=== PATIENT | female | born 1980 | race Caucasian/White ===

== ENCOUNTER → 2016-06-09 15:31 | Emergency (ER) | payer BC | END | disposition left against medical advice (07) | LOC: ED 15:31 | DX: Z34.93 Encounter for supervision of normal pregnancy, unspecified, third trimester (principal); Z53.21 Procedure and treatment not carried out due to patient leaving prior to being seen by health care provider ==

== ENCOUNTER 2016-07-01 09:58 | Inpatient (IN) | payer BC, MEDICAID ==
[2016-07-01 10:44] LABS: ROM Internal QC QC Line Present
[2016-07-01] MEDS ORDERED: Lidocaine 1% MPF* 2 ML VIAL ONE (10:48)
[2016-07-01] MEDS ORDERED: ceFOXitin 2 GM IVPREMIX* 2 GM/50 ML BAG ONE (11:11)
[2016-07-01] MEDS ORDERED: Sodium Citrate/Citric Acid* 15 ML UDC PO ONE (11:14)
[2016-07-01 11:22] LABS: Hematocrit 37 % (35-47); Hemoglobin 12.6 g/dl (12.0-16.0); Mean Corpuscular HGB Conc 34 g/dl (31-36); Mean Corpuscular Hemoglobin 30 pg (27-31); Mean Corpuscular Volume 88 fL (80-97); Mean Platelet Volume 9 um3 (7.4-10.4); Red Blood Count 4.22 10^6/ul (4.0-5.4); Red Cell Distribution Width 14 % (10.5-15); White Blood Count 10.8 10^3/ul (3.5-10.8)
[2016-07-01] MEDS ORDERED: Heparin VIAL(*) 5000 UNITS/ML VIAL (FIVE THOUSAND) SUBCUT SCH ×2 (11:30→21:00)
[2016-07-01] MEDS ORDERED: Phenylephrine IV* 40 MCG/ML 10 ML SYRINGE ONE (11:59)
[2016-07-01] MEDS ORDERED: OXYTOCIN* 10 UNITS/ML 1 ML VIAL ONE (11:59)
[2016-07-01] MEDS ORDERED: Morphine PF AMP (0.5MG/ML)* 5 MG/10 ML AMP ONE (11:59)
[2016-07-01] MEDS ORDERED: fentaNYL* 50 MCG/ML 2 ML VIAL (100 MCG VIAL) IV PRN (12:59)
[2016-07-01] MEDS ORDERED: Ondansetron INJ* 2 MG/ML VIAL IV PRN ×2 (12:59→13:01)
[2016-07-01] MEDS ORDERED: oxyCODONE/Acetamin 5/325 MG* TAB PO PRN ×2 (13:01)
[2016-07-01] MEDS ORDERED: diPHENhydraMINE IV* 50 MG/ML 1 ml VIAL (BENADRYL) IV PRN (13:01)
[2016-07-01] MEDS ORDERED: Naloxone* 0.4 MG/ML 1 ML VIAL IV PRN (13:01)
[2016-07-01] MEDS ORDERED: Dibucaine 1% 28.35 GM TUBE PR PRN (13:33)
[2016-07-01] MEDS ORDERED: Glycerin ADULT SUPP PR PRN (13:33)
[2016-07-01] MEDS ORDERED: Witch Hazel PAD* JAR TOPICAL PRN (13:33)
[2016-07-01] MEDS ORDERED: Zolpidem TAB* 5 MG PO PRN (13:33)
[2016-07-01] MEDS ORDERED: Oxytocin in LR* 20 UNITS/1,000 ML BAG IVPB SCH (14:00)
[2016-07-01] MEDS: Docusate CAP* 100 MG PO SCH ×2 (15:03→20:33)
[2016-07-01] MEDS: Simethicone TAB* 80 MG TAB.CHEW PO SCH ×2 (16:58→20:33)
[2016-07-01] MEDS ORDERED: DiMENhydriNATE IV* 50 MG/ML VIAL IV PUSH PRN (19:40)
[2016-07-01] MEDS ORDERED: Scopolamine 1.5 mg* PATCH TRANSDERM ONE (20:00)
[2016-07-02] MEDS: Ketorolac INJ* 30 MG/ML 1 ML VIAL IV PRN ×2 (01:50→08:19)
[2016-07-02] MEDS ORDERED: Acetaminophen TAB* 325 MG PO PRN (04:30)
[2016-07-02 07:30] LABS: Hematocrit 34 % (35-47); Hemoglobin 11.9 g/dl (12.0-16.0); Mean Corpuscular HGB Conc 35 g/dl (31-36); Mean Corpuscular Hemoglobin 31 pg (27-31); Mean Corpuscular Volume 88 fL (80-97); Mean Platelet Volume 9 um3 (7.4-10.4); Red Cell Distribution Width 14 % (10.5-15); White Blood Count 11.7 10^3/ul (3.5-10.8)
[2016-07-02] MEDS ORDERED: Ferrous Gluconate TAB* 324 MG TAB PO SCH (09:00)
[2016-07-02] MEDS: Docusate CAP* 100 MG PO SCH ×3 (09:00→20:31)
[2016-07-02] MEDS: Simethicone TAB* 80 MG TAB.CHEW PO SCH ×4 (09:00→20:32)
[2016-07-02] MEDS: Ibuprofen TAB* 600 MG PO PRN ×2 (14:00→20:31)
[2016-07-02] MEDS: Heparin VIAL(*) 5000 UNITS/ML VIAL (FIVE THOUSAND) SUBCUT SCH ×2 (14:00→21:54)
[2016-07-02] MEDS: oxyCODONE/Acetamin 5/325 MG* TAB PO PRN ×2 (16:43→20:32)
--- NOTE | 2016-07-02 19:48 | OP ---
DATE OF OPERATION: 07/01/16 - ROOM #[id number] DATE OF : 82 SURGEON: Brandon Cantu MD. PANTOGRAPH I ENGRAVER: Dr. Mejia. ANESTHESIOLOGIST: Leonard Navas MD ANESTHESIA: Spinal PRE-OP DIAGNOSIS: Morbid obesity, previous , twin gestation, premature rupture of membranes. POST-OP DIAGNOSIS: Morbid obesity, previous , twin gestation, premature rupture of membranes. OPERATIVE PROCEDURE: Low transverse section. ESTIMATED BLOOD LOSS: 600 cc. FINDINGS: Include a viable male, Apgars 7 and 8 and a viable female Apgars 9 and 9, weight was 2988 for baby A and 2396 for Baby B. Both fallopian tubes and ovaries appeared normal and there are no other abnormalities. DESCRIPTION OF PROCEDURE: The patient identified, procedure identified as a low transverse section. The patient was taken to the operating room, prepped and draped in the usual fashion in the left lateral recumbent position under spinal anesthesia. A Pfannenstiel incision was made in the abdomen and carried down through fat, fascia, and peritoneum. A transverse incision was made in the lower uterine segment and extended laterally using blunt dissection. The baby A was delivered in the vertex position without difficulty. Cord was doubly clamped and cut and the was handed to the awaiting foundation director. The second baby was brought down in the breech extraction manner without difficulty and the cord was doubly clamped and cut, and the was handed to the waiting foundation director. Cord bloods were obtained from both babies. Placenta delivered manually. The uterus was wiped out with a wet lap sponge. The uterine cavity was found to be more prominent on the right side making us think of a possible bicornuate uterus or an arcuate uterus, but the uterus itself seemed normal on the exterior, so consideration for something would be entertained. The uterus was wiped out with a wet lap sponge. The uterine incision was then closed using 0 Polysorb in a running fashion. The second layer was used to imbricate the first layer. Good hemostasis was verified. The both tubes and ovaries were visualized. Good hemostasis was achieved in the subperitoneal layer and the peritoneum was closed using 3-0 Polysorb in a running fashion. Hemostasis was achieved in the subrectus layer. The fascia was closed using 0 Polysorb in a running fashion. Good hemostasis achieved in the subcu. Copious irrigation was utilized and suctioned out. The subcu was reapproximated using 3-0 Polysorb in a simple fashion and the skin was closed using 4-0 Monocryl in a subcuticular fashion. All sponge and instrument counts were correct and the patient returned to the recovery room in a stable condition. [id number] #: [id number] MTDD
[2016-07-03] MEDS: oxyCODONE/Acetamin 5/325 MG* TAB PO PRN ×5 (01:02→21:33)
[2016-07-03] MEDS: Ibuprofen TAB* 600 MG PO PRN ×3 (05:24→18:08)
[2016-07-03] MEDS: Heparin VIAL(*) 5000 UNITS/ML VIAL (FIVE THOUSAND) SUBCUT SCH ×2 (06:11→16:08)
[2016-07-03] MEDS: Simethicone TAB* 80 MG TAB.CHEW PO SCH ×3 (08:54→18:09)
[2016-07-03] MEDS: Docusate CAP* 100 MG PO SCH ×3 (08:54→21:33)
[2016-07-03 19:51] VITALS: BP 157/65
[2016-07-04] MEDS: Simethicone TAB* 80 MG TAB.CHEW PO SCH ×3 (00:21→12:45)
[2016-07-04] MEDS: Ibuprofen TAB* 600 MG PO PRN ×3 (00:21→12:44)
[2016-07-04] MEDS: Heparin VIAL(*) 5000 UNITS/ML VIAL (FIVE THOUSAND) SUBCUT SCH ×2 (00:21→07:57)
[2016-07-04] MEDS: oxyCODONE/Acetamin 5/325 MG* TAB PO PRN ×2 (06:09→12:44)
[2016-07-04] MEDS: Docusate CAP* 100 MG PO SCH (08:03)
[2016-07-04] MEDS ORDERED: Scopolamine PATCH Remove* 1 NOTE MISC PATCH OFF ONE (20:00)
== END 2016-07-04 14:09 | disposition home or self-care (01) | DRG 540 ==
LOC: MCHOBOUT 09:58 → MCHOB 09:59
PROVIDERS: ADMIT Obstetrics & Gynecology; ATTEND Obstetrics & Gynecology
PROC: 10D00Z1 Extraction of Products of Conception, Low, Open Approach (ICD-10-PCS; principal; 2016-07-01 12:00)
DX: O42.913 Preterm premature rupture of membranes, unspecified as to length of time between rupture and onset of labor, third trimester (principal); Z68.43 Body mass index [BMI] 50.0-59.9, adult; O99.214 Obesity complicating childbirth; Z37.2 Twins, both liveborn; O34.219 Maternal care for unspecified type scar from previous cesarean delivery; E66.9 Obesity, unspecified; Z3A.35 35 weeks gestation of pregnancy
CPT/HCPCS: 36415; 84112; 85025; 86850; 86900; 86901; 87070; 88307; A9270-GY; J0694; J1240; J1644; J1885; J2405; J2590

== ENCOUNTER 2016-09-09 21:46 | Emergency (ER) | payer SELFPAY ==
[2016-09-09 21:59] VITALS: BP 146/79
[2016-09-09] MEDS ORDERED: Cyclobenzaprine TAB* 10 MG PO ONE (22:53)
--- NOTE | 2016-09-09 23:49 | ED ---
Upper Extremity Pain - HPI Summary HPI Summary: PATIENT PRESENTS TO ED WITH CC OF LEFT SHOULDER BLADE PAIN AFTER TRYING TO HOLD A PATIENT UPRIGHT AT WORK. SHE DENIES THE EXACT ETIOLOGY OF THE PAIN, BUT AFTER TRYING TO HOLD THE PATIENT UPRIGHT, SHE DEVELOPED SHARP PAIN IN HER LEFT SHOULDER AND PAIN IS LOCALIZED OVER THE SHOULDER BLADE WITH NO PAIN OVER THE ROTATOR CUFF. SHE DENIES BACK PAIN OR MIDLINE TENDERNESS. SHE DENIES PREVIOUS INJURY TO THE AREA. THE PAIN DOES NOT RADIATE, IT IS WORSE WITH ABDUCTION OF THE SHOULDER AND BETTER WITH REST. SHE DENIES PAIN AT REST. SHE HAS TAKEN 800MG IBUPROFEN WITHOUT RELIEF OF PAIN. - History of Current Complaint Chief Complaint: EDShouldHectorj Stated Complaint: LT SHOULDER INJURY Time Seen by Provider: 09/09/16 22:10 Hx Obtained From: Patient Mechanism Of Injury: Unknown Onset/Duration: Started Hours Ago Timing: Constant Severity Initially: Moderate Severity Currently: Moderate Pain Location: Shoulder Character: Sharp, Aching Aggravating Factor(s): Movement, Abduction Alleviating Factor(s): Rest, Ice Associated Signs & Symptoms: Positive: Negative Related History: Occupational Injury, Dominant Hand Right - Risk Factors Non-Orthopedic Risk Factor: Negative DVT Risk Factors: Negative Septic Arthritis Risk Factor: Negative Compartment Syndrome Risk Factors: Pain - Allergies/Home Medications Allergies/Adverse Reactions: Allergies Allergy/AdvReac Type Severity Reaction Status Date / Time No Known Allergies Allergy Verified 06/09/16 16:33 PMH/Surg Hx/FS Hx/Imm Hx Previously Healthy: Yes Cardiovascular History: Reports: Hx Hypertension - Immunization History Hx Pertussis Vaccination: No Immunizations Up to Date: No Infectious Disease History: No Infectious Disease History: Denies: Traveled Outside the [place] in Last 30 Days - Social History Occupation: Employed Full-time Lives: With Family Alcohol Use: None Hx Substance Use: No Substance Use Type: Reports: None Hx Tobacco Use: No Smoking Status (MU): Never Smoked Tobacco Do You Chew or Dip Tobacco: No Have You Chewed or Dipped Tobacco in the LAST YEAR: No Have You Smoked in the Last Year: No Review of Systems Constitutional: Negative Eyes: Negative Cardiovascular: Negative Respiratory: Negative Positive: no symptoms reported, see HPI Positive: Arthralgia - LEFT SHOULDER BLADE PAIN Skin: Negative Neurological: Negative All Other Systems Reviewed And Are Negative: Yes Physical Exam Triage Information Reviewed: Yes Vital Signs On Initial Exam: Initial Vitals Temp Pulse Resp BP Pulse Ox 97.7 F 90 18 146/79 100 09/09/16 21:56 09/09/16 21:56 09/09/16 21:56 09/09/16 21:56 09/09/16 21:56 Vital Signs Reviewed: Yes Appearance: Positive: Well-Appearing, No Pain Distress, Well-Nourished Skin: Positive: Warm, Skin Color Reflects Adequate Perfusion Head/Face: Positive: Normal Head/Face Inspection Eyes: Positive: EOMI, ALYSIA, Conjunctiva Clear Neck: Positive: Supple, Nontender, No Lymphadenopathy Cardiovascular: Positive: Normal, RRR, Pulses are Symmetrical in both Upper and Lower Extremities Musculoskeletal: Positive: Other - SPEED TEST, PAINFUL ARC, NEER IMPINGEMENT TEST, EMPTY CAN TEST, DROP ARM, ANTERIOR APPREHENSION TESTS ARE ALL NEGATIVE. FORCED ADDUCTION TEST POSITIVE. PAIN ON PALPATION OVER THE LEFT SHOULDER BLADE. NO MIDLINE TENDERNESS. Neurological: Positive: Sensory/Motor Intact, Reflexes Intact, Speech Normal Psychiatric: Positive: Normal AVPU Assessment: Alert Diagnostics - Vital Signs Vital Signs Temp Pulse Resp BP Pulse Ox 09/09/16 22:07 97.7 F 90 18 146/79 100 09/09/16 21:56 97.7 F 90 18 146/79 100 - Laboratory Lab Statement: Any lab studies that have been ordered have been reviewed, and results considered in the medical decision making process. Course/Dx - Course Course Of Treatment: D/T PATIENT INJURY, LIKELY INJURY IS MUSCULAR. PATIENT AGREES. OFFERED XRAY, BUT PATIENT DECLINED D/T PROVIDERS SUSPICION OF MUSCULAR STRAIN IN THE SHOULDER. ENCOURAGED REST, IBUPROFEN, MUSCLE RELAXER NEEDED. SHE IS OK TO BE DISCHARGED AND FOLLOW UP WITH PCP. - Diagnoses Differential Diagnosis/HQI/PQRI: Positive: Contusion, Fracture (Open), Fracture (Closed), Strain, Sprain Provider Diagnoses: Shoulder blade pain Discharge - Discharge Plan Condition: Stable Disposition: HOME Prescriptions: Cyclobenzaprine TAB* [Flexeril TAB*] 10 mg PO BID PRN #10 tab MDD 2 PRN Reason: Pain Patient Education Materials: Shoulder Sprain (ED) Forms: *Work Release Referrals: [facility], [Primary Care Provider] - Additional Instructions: Ibuprofen 600mg three times daily Flexeril as needed for shoulder muscle spasms If symptoms become worse, come back to ED
== END 2016-09-09 23:04 | disposition home or self-care (01) ==
LOC: ED 21:46
DX: M25.512 Pain in left shoulder (principal)
CPT/HCPCS: 99281; A9270-GY